=== PATIENT | female | born 1970 | race Caucasian/White ===

== ENCOUNTER → 2016-10-21 | Outpatient (CLI) | payer BC, OTHER ==
--- NOTE | 2016-10-21 11:53 | REP ---
MRI CERVICAL SPINE WITHOUT CONTRAST: HISTORY: Neck pain. A disc bulge is present at the C4-5 level. There is minimal effacement of the thecal sac without spinal cord compression. The C4 neural foramina are patent. A disc bulge is present at the C5-6 level. There is minimal effacement of the thecal sac without spinal cord compression. The C5 neural foramina are patent. There is no other disc bulge or herniation. The remaining neural foramina are patent. The spinal cord is normal in signal intensity. There is no intradural extramedullary lesion. The C4-5 and C5-6 intervertebral discs are decreased in height consistent with disc degeneration. Normal signal intensity is present in the cervical vertebral bodies. IMPRESSION: There is cervical spondylosis at the C4-5 and C5-6 levels without spinal cord compression. Signed by Tobin Rooney MD 10/21/2016 12:14 P
--- NOTE | 2016-10-21 12:45 | REP ---
MR LUMBAR SPINE WITH AND WITHOUT CONTRAST: HISTORY: Back pain. Contrast: ProHance 15 mL. Decreased signal intensity on T2-weighted images is present in the L3-4 through L5-S1 intervertebral discs. The discs are decreased in height. These findings are consistent with disc degeneration. There is no disc bulge or herniation at the L1-2 and L2-3 levels. The nerves exit the neural foramina without compression. A diffuse disc bulge is present at the L3-4 level. There is minimal compression of the thecal sac. There is hypertrophy of the posterior articulating facets. The L3 nerves exit the neural foramina without compression. A diffuse disc bulge is present at the L4-5 level. There is hypertrophy of the ligamenta flava and posterior articulating facets. These findings produce minimal central canal stenosis. The L4 nerves exit the neural foramina without compression. A diffuse disc bulge and small right paracentral disc protrusion are present at the L5-S1 level. The disc protrusion abuts the thecal sac and right S1 nerve. The left S1 nerve is normal. The L5 nerves exit the neural foramina without compression. A right laminectomy defect is present. Enhancing scar tissue is present at the laminectomy site and right lateral aspect of the spinal canal. The scar tissue involves the right S1 nerve. The conus medullaris is normal in appearance terminating at the level of the L1-2 intervertebral disc. Increased signal intensity on T2-weighted images is present in the endplates of the L5 and S1 vertebral bodies. This represents degenerative change. IMPRESSION: 1. Diffuse disc bulge at the L3-4 level with minimal thecal sac compression. 2. Minimal central canal stenosis at the L4-5 level secondary to disc bulge, ligamentous and facet hypertrophy. 3. Diffuse disc bulge and small right paracentral disc protrusion at the L5-S1 level. The disc protrusion abuts the thecal sac and right S1 nerve. A right laminectomy defect is present. Scar tissue involves the right S1 nerve. Signed by Tobin Rooney MD 10/21/2016 12:49 P
== END | disposition home or self-care (01) ==
LOC: M RAD 09:45
PROVIDERS: ATTEND Neurological Surgery
DX: M47.892 Other spondylosis, cervical region (principal); M47.896 Other spondylosis, lumbar region; M47.812 Spondylosis without myelopathy or radiculopathy, cervical region; M51.06 Intervertebral disc disorders with myelopathy, lumbar region; M51.17 Intervertebral disc disorders with radiculopathy, lumbosacral region; M48.06 Spinal stenosis, lumbar region
CPT/HCPCS: 72141; 72158; A9576

== ENCOUNTER → 2017-12-29 | Outpatient (CLI) | payer BC, OTHER | LOC: M RAD 08:26 | DX: I70.213 Atherosclerosis of native arteries of extremities with intermittent claudication, bilateral legs (principal); I87.393 Chronic venous hypertension (idiopathic) with other complications of bilateral lower extremity; F17.211 Nicotine dependence, cigarettes, in remission | CPT/HCPCS: 93970 ==